=== PATIENT | male | born 1950 | race Caucasian/White ===

== ENCOUNTER 2017-09-04 12:00 | Day surgery (SDC) | payer MEDICARE, OTHER ==
[~2017-09-04 12:00] MED LIST: ASPI325 PO; ASPI81CH PO; Amiodarone HCl200 MG PO; CARV25 PO; CLOP75 PO; CYCL10 PO; Carvedilol12.5 MG PO; DIGO.25 PO; DOFE500 PO; HYDR1TAB94 PO; LISI10 PO; LISI5 PO; METO50ER PO; SIMV40 PO; SOMA350 MG PO; SPIR25 PO
== END 2017-09-04 23:04 | disposition home or self-care (01) ==
LOC: WOUND 12:00
DX: T14.8XXA Other injury of unspecified body region, initial encounter (principal); Z53.20 Procedure and treatment not carried out because of patient's decision for unspecified reasons
CPT/HCPCS: G0463

== ENCOUNTER 2023-02-06 14:34 | Inpatient (IN) | payer MEDICARE, OTHER ==
[~2023-02-06] VITALS: Ht 185.4 cm; Wt 104.5 kg
[2023-02-06 15:19] LABS: BASOPHILS ABSOLUTE AUTO 0.03 K/mm3 (0.00-0.23); BASOPHILS PERCENT AUTO 0 % (0-2); EOSINOPHILS ABSOLUTE AUTO 0.13 K/mm3 (0.00-0.68); EOSINOPHILS PERCENT AUTO 1 % (0-6); Hematocrit 37.1 % (37.0-53.0); Hemoglobin 12.5 g/dL (13.5-17.5); IMMATURE GRAN ABSOLUTE AUTO 0.05 K/mm3 (0.00-0.10); IMMATURE GRAN PERCENT AUTO 0 % (0-1); LYMPHOCYTES ABSOLUTE AUTO 1.89 K/mm3 (0.84-5.20); LYMPHOCYTES PERCENT AUTO 14 % (21-46); MONOCYTES ABSOLUTE AUTO 1.98 K/mm3 (0.16-1.47); MONOCYTES PERCENT AUTO 14 % (4-13); Mean Corpuscular HGB 31.6 pg (26.0-34.0); Mean Corpuscular HGB Conc 33.7 g/dL (31.5-36.5); Mean Corpuscular Volume 94 fL (80-100); Mean Platelet Volume 10.4 fL (9.1-12.4); NEUTROPHILS ABSOLUTE AUTO 9.91 K/mm3 (1.96-9.15); NEUTROPHILS PERCENT AUTO 71 % (41-73); Platelet Count 489 K/mm3 (150-400); RDW Coefficient Variation 14.3 % (11.7-14.2); RDW Standard Deviation 49.2 fL (35.1-46.3); Red Blood Cell Count 3.96 M/mm3 (4.30-5.90); White Blood Cell Count 13.99 K/mm3 (4.00-11.30)
[2023-02-06 15:48] LABS: Albumin, Blood 2.7 g/dL (3.4-5.0); Albumin/Globulin Ratio 0.6 (0.8-1.8); Bilirubin, Total 0.5 mg/dL (0.1-1.0); Bun/Creatinine Ratio 23.8 (12.0-20.0); Calcium, Blood 9.1 mg/dL (8.5-10.1); Creatinine, Blood 1.22 mg/dL (0.60-1.20); Globulin, Blood 4.9 g/dL (2.2-4.0); Potassium, Blood 4.7 mmol/L (3.5-5.5); Total Protein, Blood 7.6 g/dL (6.4-8.2)
[2023-02-06] MEDS ORDERED: SPIRONOLACTONE25 MG PO (19:28)
[2023-02-06] MEDS ORDERED: SOTALOL8011 PO (19:28)
[2023-02-06] MEDS ORDERED: BACLOFEN10 M4 PO (19:29)
[2023-02-06] MEDS ORDERED: FUROSEMIDE20 MG PO (19:29)
[2023-02-06 22:51] VITALS: BP 118/74
[2023-02-06] MEDS ORDERED: ENTRESTO 24 MG1 EACH PO (23:07)
[2023-02-07] VITALS (15 sets, daily range): BP systolic 94–132; BP diastolic 55–81
[2023-02-07 03:07] LABS: BASOPHILS ABSOLUTE AUTO 0.04 K/mm3 (0.00-0.23); BASOPHILS PERCENT AUTO 0 % (0-2); EOSINOPHILS ABSOLUTE AUTO 0.12 K/mm3 (0.00-0.68); EOSINOPHILS PERCENT AUTO 1 % (0-6); Hematocrit 35.6 % (37.0-53.0); Hemoglobin 12.1 g/dL (13.5-17.5); IMMATURE GRAN ABSOLUTE AUTO 0.08 K/mm3 (0.00-0.10); IMMATURE GRAN PERCENT AUTO 1 % (0-1); LYMPHOCYTES ABSOLUTE AUTO 2.07 K/mm3 (0.84-5.20); LYMPHOCYTES PERCENT AUTO 13 % (21-46); MONOCYTES ABSOLUTE AUTO 2.09 K/mm3 (0.16-1.47); MONOCYTES PERCENT AUTO 13 % (4-13); Mean Corpuscular HGB 31.2 pg (26.0-34.0); Mean Corpuscular Volume 92 fL (80-100); Mean Platelet Volume 10.1 fL (9.1-12.4); NEUTROPHILS ABSOLUTE AUTO 11.68 K/mm3 (1.96-9.15); NEUTROPHILS PERCENT AUTO 73 % (41-73); Platelet Count 502 K/mm3 (150-400); RDW Coefficient Variation 14.2 % (11.7-14.2); RDW Standard Deviation 47.8 fL (35.1-46.3); Red Blood Cell Count 3.88 M/mm3 (4.30-5.90); White Blood Cell Count 16.08 K/mm3 (4.00-11.30)
[2023-02-07 03:24] LABS: Anion Gap 3 mmol/L (6-16); Blood Urea Nitrogen 25 mg/dL (8-24); Bun/Creatinine Ratio 25.9 (12.0-20.0); CO2, Blood 28 mmol/L (21-32); Calcium, Blood 8.7 mg/dL (8.5-10.1); Chloride, Blood 100 mmol/L (98-108); Creatinine, Blood 0.97 mg/dL (0.60-1.20); Glomerular Filtration Rate 83 (60-); Glucose, Blood 143 mg/dL (70-99); Potassium, Blood 4.1 mmol/L (3.5-5.5); Sodium, Blood 131 mmol/L (136-145)
[2023-02-07 03:55] LABS: CHOL/HDL RATIO 5.1; Cholesterol 107 mg/dL (50-200); HDL Cholesterol 21 mg/dL (>39); LDL/HDL RATIO 3.3; Low Density Lipoprotein Chol 70 mg/dL (0-110); Triglycerides 82 mg/dL (30-160); Very Low Density Lipoprot Chol 16 mg/dL (6-32)
--- NOTE | 2023-02-07 05:53 | NUR ---
SHIFT SUMMARY PT A&OX4, AND COOPERATIVE WITH CARE. NO ACUTE CHANGES. VSS. MEDICATED FOR PAIN ONCE. NPO. NO COMPLAINTS OF NAUSEA. INDEPENDENT IN ROOM. VOIDING WITH BEDSIDE URINAL. CALLS APPROPRIATELY, CALL LIGHT WITHIN REACH.
--- NOTE | 2023-02-07 14:23 | NUR ---
PT TO OR AT APROX 1420 ON [facility]
--- NOTE | 2023-02-07 14:47 | NUR ---
Patient confirms NPO status and agrees with scheduled surgery. Pre-Op teaching done. Pt verbalizes understanding. PT HAS FINE BIBASILAR CRACKLES, DENIES ORTHOPNEA OF DYSPNEA. O2 SATS >94% ON RM AIR.
--- NOTE | 2023-02-07 18:26 | NUR ---
Pt. is awake in bed and welcomes my visit. Pt. is pleasant and has reruned to his room after surgery. Facilitated a life review and considered matters of brendan and belief. Listened with empathy, engagement and a calming presence. Established rapport and Pt. displayed evidence of being engaged in his recovery. Prayed with Pt. Pt. verbalized gratitude for the spiritual care visit, and welcomed this logistics intern to return.
--- NOTE | 2023-02-07 19:02 | NUR ---
SHIFT SUMMARY PT POD 0 I&D ABD. KERLEX PACKING TO OPEN ABD INCISION COVERED W/GAUZE AND TAPE WITH SM AMT SHADOWING PRESENT. PT REPORTS PAIN 5/10 AND TOLERABLE. CONTINUE IV ABX. TOLERATING CLEAR LIQUIDS WITH NO N/V.
[2023-02-08 00:09] VITALS: BP 124/68
--- NOTE | 2023-02-08 03:59 | NUR ---
SHIFT SUMMARY POD 0 I&D OF ABD ABCESS. PT HAS DONE WELL OVERNIGHT, HE IS TOLERATING PO INTAKE AND IS VOIDING. DRESSING INTACT TO ABD C/D/I. IV ANTIBIOTICS INFUSED. PT HAS BEEN INDEPENDENT IN THE ROOM. LOST IV ACCESS THIS SHIFT AT THE START OF ANTIBIOTIC INFUSION, NEW IV ESTABLISHED TO THE RIGHT AC AND PT WAS ABLE TO FINISH ANTIBIOTIC THERAPY. NO ACUTE CHANGES OVERNIGHT, BED IN LOWEST POSITION, CALL LIGHT WITHIN REACH.
[2023-02-08 04:35] VITALS: BP 107/69
[2023-02-08 07:52] VITALS: BP 110/73
[2023-02-08 09:06] LABS: Hematocrit 34.7 % (37.0-53.0); Hemoglobin 11.7 g/dL (13.5-17.5); Mean Corpuscular HGB Conc 33.7 g/dL (31.5-36.5); Mean Corpuscular Volume 92 fL (80-100); Mean Platelet Volume 10.3 fL (9.1-12.4); Platelet Count 475 K/mm3 (150-400); RDW Coefficient Variation 14.2 % (11.7-14.2); RDW Standard Deviation 48.4 fL (35.1-46.3); Red Blood Cell Count 3.77 M/mm3 (4.30-5.90)
[2023-02-08 09:33] LABS: Bun/Creatinine Ratio 21.9 (12.0-20.0); Calcium, Blood 8.6 mg/dL (8.5-10.1); Creatinine, Blood 0.96 mg/dL (0.60-1.20); Potassium, Blood 4.1 mmol/L (3.5-5.5)
[2023-02-08 14:33] VITALS: BP 90/62
--- NOTE | 2023-02-08 16:57 | NUR ---
DR. DAUGHERTY IN ROOM AT ABOUT 1400, THIS RN AT BEDSIDE. DR. DAUGHERTY PLANS TO CHANGE DRESSING AT [facility] TOMORROW AND ASKED THIS RN TO HOLD OF ON CHANGING DRESSING TODAY. DRESSING IS WNL CURRENTLY, CDI. SMALL AMT DRY SS DRAINAGE VISABLE THROUGH TAPE.
--- NOTE | 2023-02-08 17:01 | NUR ---
SUMMARY: PT IS POD1 I&D FOR ABD WALL ABSCESS. A/O, VSS. PT IS AMBULATING, VOIDING AND PAIN MANAGED WITH 1 NARCO. PT TOLERATING DIET, DENIES N/V. PLAN IS FOR DRESSING CHANGE TOMORROW BY DR. FLOREZ AND POSSIBLE DC HOME. NO SAFETY CONCERNS
[2023-02-08 19:27] VITALS: BP 100/63
[2023-02-09 04:36] VITALS: BP 104/66
--- NOTE | 2023-02-09 04:44 | NUR ---
SHIFT SUMMARY NO ACUTE CHANGE TO REPORT OVERNIGHT, POD 1 I&D OF ABCESS. PT HAS RESTED T/O THE NIGHT. APPETITE IS GOOD, PT VOIDING AND AMBULATING INDEPENDENTLY IN ROOM. ABD DRESSING IS C/D/I. PLAN IS FOR DC TODAY. BED IN LOWEST POSITION, CALL LIGHT WITHIN REACH.
[2023-02-09 07:08] VITALS: BP 111/76
[2023-02-09 09:14] LABS: Hemoglobin 11.2 g/dL (13.5-17.5); Mean Corpuscular HGB 31.2 pg (26.0-34.0); Mean Corpuscular HGB Conc 33.9 g/dL (31.5-36.5); Mean Corpuscular Volume 92 fL (80-100); Mean Platelet Volume 10.6 fL (9.1-12.4); Platelet Count 493 K/mm3 (150-400); RDW Coefficient Variation 14.2 % (11.7-14.2); RDW Standard Deviation 48.7 fL (35.1-46.3); Red Blood Cell Count 3.59 M/mm3 (4.30-5.90); White Blood Cell Count 12.75 K/mm3 (4.00-11.30)
[2023-02-09 09:33] LABS: Vancomycin, Trough 17.6 ug/mL (5.0-10.0)
[2023-02-09 09:36] LABS: Bun/Creatinine Ratio 25.7 (12.0-20.0); Calcium, Blood 8.4 mg/dL (8.5-10.1); Creatinine, Blood 0.94 mg/dL (0.60-1.20)
--- NOTE | 2023-02-09 11:49 | NUR ---
Pt. is awake in bed and welcomes my visit. Pt. is pleasant and shares about his anticipated discharge plan. Listen with encouragement and empathy, and re-establish rapport. Considered matters of brendan and belief. Prayed with the Pt. Pt. displayed peace, confidence and evidence of motivation and commitment to follow through with his follow up plan. Pt. verbalized gratitude for the spiritual care visit.
[2023-02-09] MEDS ORDERED: ACET325 PO (12:14)
[2023-02-09] MEDS ORDERED: SULTRIDS PO (12:15)
[2023-02-09 16:30] VITALS: BP 110/72
--- NOTE | 2023-02-09 16:30 | NUR ---
DC'D HOME, DC INSTRUCTIONS GIVEN, VERBALIZED UNDERSTANDING, IV DC'D, CATH INTACT, DRESSING CHANGED BY DR. DAUGHERTY, REFERRAL MADE TO [facility]OUND CL[facility].
== END 2023-02-09 16:47 | disposition home or self-care (01) | DRG 856 ==
LOC: ER 14:34 → SURS 21:19
PROVIDERS: Family Medicine; Internal Medicine; Physician Assistant; Surgery; ADMIT Internal Medicine
PROC: 0W9F0ZZ Drainage of Abdominal Wall, Open Approach (ICD-10-PCS; principal; 2023-02-07 11:30)
DX: T81.43XA Infection following a procedure, organ and space surgical site, initial encounter (principal); K65.1 Peritoneal abscess; L02.211 Cutaneous abscess of abdominal wall; N17.9 Acute kidney failure, unspecified; I50.22 Chronic systolic (congestive) heart failure; I25.10 Atherosclerotic heart disease of native coronary artery without angina pectoris; I11.0 Hypertensive heart disease with heart failure; M62.830 Muscle spasm of back; D75.839 Thrombocytosis, unspecified; B95.62 Methicillin resistant Staphylococcus aureus infection as the cause of diseases classified elsewhere; K57.30 Diverticulosis of large intestine without perforation or abscess without bleeding; Z95.0 Presence of cardiac pacemaker; Z86.14 Personal history of Methicillin resistant Staphylococcus aureus infection; Z87.891 Personal history of nicotine dependence; Z93.3 Colostomy status; I25.2 Old myocardial infarction; Z90.49 Acquired absence of other specified parts of digestive tract; Z90.89 Acquired absence of other organs; Z98.890 Other specified postprocedural states; Z88.0 Allergy status to penicillin; Z79.82 Long term (current) use of aspirin; Z79.899 Other long term (current) drug therapy; Y83.6 Removal of other organ (partial) (total) as the cause of abnormal reaction of the patient, or of later complication, without mention of misadventure at the time of the procedure
CPT/HCPCS: 36415; 74177; 80048; 80053; 80061; 80202; 83036; 83605; 83690; 85025; 85027; 87070; 87075; 87077; 87147; 87186; 87205; 93005; 93010; 96365-59; 96375; 99285-25; A9270; C8929; J0692; J1650; J1940; J2250; J2270; J2795; J3010; J3370; J7030; J7050; J7120; Q9957; Q9967

== ENCOUNTER 2023-02-16 02:28 | Day surgery (SDC) | payer MEDICARE, OTHER ==
[~2023-02-16 02:28] MED LIST changes: +ACET325 PO; +BACLOFEN10 M4 PO; +ENTRESTO 24 MG1 EACH PO; +FUROSEMIDE20 MG PO; +SOTALOL8011 PO; +SPIRONOLACTONE25 MG PO; +SULTRIDS PO
== END 2023-02-16 23:23 | disposition home or self-care (01) ==
LOC: WOUND 02:28
DX: S31.109D Unspecified open wound of abdominal wall, unspecified quadrant without penetration into peritoneal cavity, subsequent encounter (principal); X58.XXXD Exposure to other specified factors, subsequent encounter; Z86.14 Personal history of Methicillin resistant Staphylococcus aureus infection; Z95.0 Presence of cardiac pacemaker; Z88.0 Allergy status to penicillin; I11.0 Hypertensive heart disease with heart failure; I50.42 Chronic combined systolic (congestive) and diastolic (congestive) heart failure; I25.2 Old myocardial infarction; E78.5 Hyperlipidemia, unspecified
CPT/HCPCS: A9270; G0463

== ENCOUNTER 2023-02-23 01:27 | Day surgery (SDC) | payer MEDICARE, OTHER | END 2023-02-23 22:57 | disposition home or self-care (01) | LOC: WOUND 01:27 | DX: S31.109D Unspecified open wound of abdominal wall, unspecified quadrant without penetration into peritoneal cavity, subsequent encounter (principal); X58.XXXD Exposure to other specified factors, subsequent encounter; Z95.0 Presence of cardiac pacemaker; Z86.14 Personal history of Methicillin resistant Staphylococcus aureus infection; E11.9 Type 2 diabetes mellitus without complications | CPT/HCPCS: G0463 ==

== ENCOUNTER 2023-03-01 05:40 | Day surgery (SDC) | payer MEDICARE, OTHER | END 2023-03-01 23:10 | disposition home or self-care (01) | LOC: WOUND 05:40 | DX: S31.109D Unspecified open wound of abdominal wall, unspecified quadrant without penetration into peritoneal cavity, subsequent encounter (principal); X58.XXXD Exposure to other specified factors, subsequent encounter; Z95.0 Presence of cardiac pacemaker; Z86.14 Personal history of Methicillin resistant Staphylococcus aureus infection | CPT/HCPCS: G0463 ==

== ENCOUNTER 2023-03-08 00:20 | Day surgery (SDC) | payer MEDICARE, OTHER | END 2023-03-08 23:12 | disposition home or self-care (01) | LOC: WOUND 00:20 | DX: S31.109D Unspecified open wound of abdominal wall, unspecified quadrant without penetration into peritoneal cavity, subsequent encounter (principal); X58.XXXD Exposure to other specified factors, subsequent encounter; Z95.0 Presence of cardiac pacemaker; Z86.14 Personal history of Methicillin resistant Staphylococcus aureus infection | CPT/HCPCS: A9270; G0463 ==

== ENCOUNTER 2023-03-15 00:41 | Day surgery (SDC) | payer MEDICARE, OTHER | END 2023-03-15 23:05 | disposition home or self-care (01) | LOC: WOUND 00:41 | DX: T81.89XA Other complications of procedures, not elsewhere classified, initial encounter (principal); E11.9 Type 2 diabetes mellitus without complications; Z87.891 Personal history of nicotine dependence; Z95.0 Presence of cardiac pacemaker; Z86.14 Personal history of Methicillin resistant Staphylococcus aureus infection | CPT/HCPCS: G0463 ==

== ENCOUNTER 2023-03-22 03:39 | Day surgery (SDC) | payer MEDICARE, OTHER | END 2023-03-22 23:09 | disposition home or self-care (01) | LOC: WOUND 03:39 | DX: S31.109D Unspecified open wound of abdominal wall, unspecified quadrant without penetration into peritoneal cavity, subsequent encounter (principal); X58.XXXD Exposure to other specified factors, subsequent encounter; Z95.0 Presence of cardiac pacemaker; Z86.14 Personal history of Methicillin resistant Staphylococcus aureus infection | CPT/HCPCS: G0463 ==

== ENCOUNTER 2023-03-29 03:13 | Day surgery (SDC) | payer MEDICARE, OTHER | END 2023-03-29 22:48 | disposition home or self-care (01) | LOC: WOUND 03:13 | DX: T81.89XA Other complications of procedures, not elsewhere classified, initial encounter (principal); Z95.0 Presence of cardiac pacemaker; Z86.14 Personal history of Methicillin resistant Staphylococcus aureus infection | CPT/HCPCS: G0463 ==

== ENCOUNTER → 2023-04-05 | Day surgery (SDC) | payer MEDICARE, OTHER | LOC: WOUND 07:43 | DX: T81.89XD Other complications of procedures, not elsewhere classified, subsequent encounter (principal); Y83.8 Other surgical procedures as the cause of abnormal reaction of the patient, or of later complication, without mention of misadventure at the time of the procedure; Z95.0 Presence of cardiac pacemaker; Z86.14 Personal history of Methicillin resistant Staphylococcus aureus infection; X58.XXXD Exposure to other specified factors, subsequent encounter | CPT/HCPCS: G0463 ==

== ENCOUNTER → 2025-07-02 | Outpatient (CLI) | payer OTHER ==
[~2025-07-02] MED LIST changes: +ASPI325; +Aspir 8181 MG PO; +FURO40 PO; +IBUP600 PO; +Isosorbide Mono30 MG PO
[2025-07-02 15:54] LABS: Protein, Urine Quantitative 11.3 mg/dL (0.0-11.9)
== END ==
LOC: LAB SHORT 14:19 → LAB 14:19
PROVIDERS: Family Medicine
DX: N28.9 Disorder of kidney and ureter, unspecified (principal)
CPT/HCPCS: 81050; 84156

== ENCOUNTER → 2025-10-19 | Outpatient (CLI) | payer OTHER ==
[2025-10-19 10:52] LABS: BASOPHILS ABSOLUTE AUTO 0.02 K/mm3 (0.00-0.23); BASOPHILS PERCENT AUTO 0 % (0-2); EOSINOPHILS ABSOLUTE AUTO 0.20 K/mm3 (0.00-0.68); EOSINOPHILS PERCENT AUTO 3 % (0-6); Hematocrit 43.0 % (37.0-53.0); Hemoglobin 14.7 g/dL (13.5-17.5); IMMATURE GRAN ABSOLUTE AUTO 0.02 K/mm3 (0.00-0.10); IMMATURE GRAN PERCENT AUTO 0 % (0-1); LYMPHOCYTES ABSOLUTE AUTO 1.03 K/mm3 (0.84-5.20); LYMPHOCYTES PERCENT AUTO 15 % (21-46); MONOCYTES ABSOLUTE AUTO 0.89 K/mm3 (0.16-1.47); MONOCYTES PERCENT AUTO 13 % (4-13); Mean Corpuscular HGB Conc 34.2 g/dL (31.5-36.5); Mean Corpuscular Volume 98 fL (80-100); NEUTROPHILS ABSOLUTE AUTO 4.69 K/mm3 (1.96-9.15); NEUTROPHILS PERCENT AUTO 69 % (41-73); NRBC ABSOLUTE 0.00 K/mm3 (0.00-0.02); NRBC Auto 0.0 /100 WBC (0.0-0.2); Platelet Count 200 K/mm3 (150-400); RDW Coefficient Variation 15.0 % (11.7-14.2); RDW Standard Deviation 54.5 fL (35.1-46.3)
[2025-10-19 10:55] LABS: Alanine Aminotransfer (ALT/SGP 18.0 U/L (12-78); Albumin, Blood 3.9 g/dL (3.4-5.0); Albumin/Globulin Ratio 1.0 (0.8-1.8); Anion Gap 13.0 mmol/L (3-11); Aspartate Aminotrans (AST/SGOT 16.0 U/L (12-37); Bilirubin, Direct 0.7 mg/dL (0.0-0.3); Bilirubin, Total 2.6 mg/dL (0.1-1.0); Blood Urea Nitrogen 27.0 mg/dL (8-24); CO2, Blood 30.0 mmol/L (21-32); Calcium, Blood 9.1 mg/dL (8.5-10.1); Chloride, Blood 100.0 mmol/L (98-108); Creatinine, Blood 1.34 mg/dL (0.60-1.20); Globulin, Blood 3.8 g/dL (2.2-4.0); Glucose, Blood 148.0 mg/dL (70-99); Potassium, Blood 4.5 mmol/L (3.5-5.5); Sodium, Blood 138.0 mmol/L (136-145); Total Protein, Blood 7.7 g/dL (6.4-8.2)
== END ==
LOC: LAB SHORT 10:38 → LAB 10:38
PROVIDERS: Chiropractor
DX: R06.00 Dyspnea, unspecified (principal); R17 Unspecified jaundice; R10.13 Epigastric pain
CPT/HCPCS: 80053; 82248; 83690; 83880; 84484; 85025; 85379